=== PATIENT | male | born 1990 | race Caucasian/White ===

== ENCOUNTER → 2024-05-04 | Emergency (ER) | payer BC ==
[~2024-05-04] VITALS: Ht 188 cm; Wt 149.7 kg
[~2024-05-04] MED LIST: IBUP-1955 PO; KETOROLAC TROMETHAMINE 15 MG/ML VIAL ONE; METOCLOPRAMIDE HCL 10 MG/2 ML VIAL ONE; diphenhydrAMINE HCL 50 MG/ML VIAL ONE
[2024-05-04] MEDS: diphenhydrAMINE HCL 50 MG/ML VIAL IV ONE (15:31)
[2024-05-04] MEDS: METOCLOPRAMIDE HCL 10 MG/2 ML VIAL IV ONE (15:31)
[2024-05-04] MEDS: KETOROLAC TROMETHAMINE 15 MG/ML VIAL IV ONE (15:32)
[2024-05-04] MEDS: IV NS 0.9% 1,000 ML BAG IV ONE (15:32)
[2024-05-04 17:20] VITALS: BP 130/80; TEMP 98.4; O2SAT 96
== END | disposition home or self-care (01) ==
LOC: ER 14:47
DX: R51.9 Headache, unspecified (principal); H53.149 Visual discomfort, unspecified; R11.0 Nausea; I10 Essential (primary) hypertension
CPT/HCPCS: 99284; 96374; 96375; 96361; J1200; J2765; J7030; J1885

== ENCOUNTER 2024-05-06 19:41 | Inpatient (IN) | payer BC ==
[~2024-05-06] VITALS: Ht 188 cm; Wt 143.8 kg
[~2024-05-06 19:41] MED LIST changes: -KETOROLAC TROMETHAMINE 15 MG/ML VIAL ONE; -METOCLOPRAMIDE HCL 10 MG/2 ML VIAL ONE; -diphenhydrAMINE HCL 50 MG/ML VIAL ONE
[2024-05-06] MEDS: PIPERACILLIN /TAZOBACTAM 3.375 G in IV D5W 50 ML IV ONE (21:00)
[2024-05-06] MEDS: IV NS 0.9% 1,000 ML BAG IV ONE (21:00)
[2024-05-06] MEDS: MORPHINE SULFATE INJ 2 MG/ML DISP.SYRIN IV ONE (21:00)
[2024-05-06] MEDS: ONDANSETRON HCL/PF 4 MG/2 ML VIAL IVP ONE (21:00)
[2024-05-06] MEDS ORDERED: ONDANSETRON HCL/PF 4 MG/2 ML VIAL ONE (21:10)
[2024-05-06] MEDS ORDERED: MORPHINE SULFATE INJ 4 MG/ML DISP.SYRIN ONE (21:11)
[2024-05-06] MEDS ORDERED: PIPERACI/TAZO 3.375GM/D5W 50ML PB IV ONE (21:11)
[2024-05-06] MEDS ORDERED: VANCOMYCIN 1 GM /D5W 250 ML PB IV ONE (21:11)
[2024-05-06 21:26] LABS: BASOPHILS # (AUTO) 0.2 K/uL (0.0-0.2); BASOPHILS % (AUTO) 1.2 % (0.0-2.0); EOSINOPHILS % (AUTO) 0.1 % (0.0-6.0); HEMATOCRIT 46 % (39-51); HEMOGLOBIN 15.3 g/dL (13.5-17.5); LYMPHOCYTES # (AUTO) 1.6 K/uL (0.8-4.8); LYMPHOCYTES % (AUTO) 8.3 % (20.0-44.0); MEAN CORPUSCULAR HEMOGLOBIN 29 PG (26.0-33.0); MEAN CORPUSCULAR HGB CONC 34 g/dl (31.0-36.0); MEAN CORPUSCULAR VOLUME 87 fL (80-96); MONOCYTES # (AUTO) 1.5 K/uL (0.1-1.30); MONOCYTES % (AUTO) 7.9 % (2.0-12.0); NEUTROPHILS # (AUTO) 15.8 K/uL (1.8-8.9); NEUTROPHILS % (AUTO) 82.5 % (43.0-81.0); PLATELET COUNT (AUTO) 191 K/uL (150-450); RED BLOOD CELL COUNT(AUTO) 5.25 MIL/uL (4.5-6.0); RED CELL DISTRIBUTION WIDTH 13.2 % (11.5-15.0); WHITE BLOOD COUNT (AUTO) 19.2 K/uL (4.3-11.0)
[2024-05-06] MEDS: KETOROLAC TROMETHAMINE INJ 30 MG/ML VIAL IV ONE (21:30)
[2024-05-06] MEDS: ACETAMINOPHEN ES 500 MG TABLET PO ONE (21:30)
[2024-05-06 21:34] LABS: CALCIUM, SERUM 8.8 mg/dL (8.5-10.1); CARBON DIOXIDE 26 mmol/L (21-32); CHLORIDE 94 mmol/L (98-107); CREATININE 1.2 mg/dL (0.6-1.3); GLUCOSE 369 mg/dL (74-106); POTASSIUM 4.4 mmol/L (3.5-5.1); SODIUM SERUM 127 mmol/L (136-145); UREA NITROGEN, BLOOD 14 mg/dL (7-18)
[2024-05-06 21:39] LABS: ALANINE AMINOTRANSFERASE 49 U/L (12-78); ALBUMIN 2.6 g/dL (3.4-5.0); ALKALINE PHOSPHATASE 96 U/L (46-116); ASPARTATE AMINOTRANSFERASE 48 U/L (15-37); BILIRUBIN,DIRECT 0.5 mg/dL (0.0-0.2); BILIRUBIN,TOTAL 1.7 mg/dL (0.2-1.0); TOTAL PROTEIN, SERUM 7.2 g/dL (6.4-8.2)
[2024-05-06] MEDS: VANCOMYCIN 1 GM in IV D5W 250 ML IV ONE (21:44)
[2024-05-06 21:45] LABS: LACTIC ACID 2.8 mmol/L (0.4-2.0)
[2024-05-06] MEDS ORDERED: ACETAMINOPHEN ES 500 MG TABLET ONE (21:46)
[2024-05-06] MEDS ORDERED: KETOROLAC TROMETHAMINE INJ 30 MG/ML VIAL ONE (21:46)
[2024-05-06 22:10] LABS: INR 1.23 (0.91-1.10); PARTIAL THROMBOPLASTIN TIME 30.8 SEC (24.3-34.3); PROTHROMBIN TIME 12.9 SECS (9.2-11.1)
[2024-05-06] MEDS ORDERED: IOHEXOL-300 100 ML VIAL IV ONE (22:11)
[2024-05-06] MEDS ORDERED: IV NS 0.9% 250 ML IV ONE (22:11)
[2024-05-06] MEDS ORDERED: CT SWABBABLE VALVE TRANS SET 1 EA INFUS.SET MC ONE (22:11)
[2024-05-06 23:07] LABS: APPEARANCE,URINE CLEAR (CLEAR); BILIRUBIN,URINE 1+ (NEGATIVE); BLOOD, URINE 1+ Ery/uL (NEGATIVE); COLOR,URINE DARK YELLOW (YELLOW); KETONES,URINE TRACE mg/dL (NEGATIVE); LEUKOCYTE ESTERASE ,URINE NEGATIVE (NEGATIVE); NITRITE, URINE POSITIVE (NEGATIVE); PROTEIN,URINE 3+ mg/dl (NEGATIVE); UGLUCOSE 2+ mg/dL (NEGATIVE)
[2024-05-06 23:19] LABS: ADD URINE CULTURE YES; BACTERIA,URINE Few /HPF (None Seen); SQUAMOUS EPITHELIAL CELL,UR Few /HPF (None Seen)
[2024-05-06] MEDS ORDERED: PIPERACILLIN /TAZOBACTAM 3.375 G in IV NS 0.9% 50 ML IV ONE (23:30)
[2024-05-06] MEDS ORDERED: ZOLPIDEM TARTRATE 5 MG TABLET PO PRN (23:30)
[2024-05-06] MEDS ORDERED: Z GUARD REMEDY 4 OZ OINT TP PRN (23:30)
[2024-05-06] MEDS ORDERED: MAGNESIUM HYDROXIDE 30 ML UDC PO PRN (23:30)
[2024-05-06] MEDS ORDERED: MAG HYDROX/AL HYDROX/SIMETH 30 ML UDC PO PRN (23:30)
[2024-05-06 23:58] VITALS: BP 104/64; TEMP 98.8; O2SAT 96
[2024-05-07 00:06] LABS: BASOPHILS % (MANUAL) 0 % (0.0-2.0); EOSINOPHILS % (MANUAL) 0 % (0-4); LYMPHOCYTES % (MANUAL) 9 % (16-48); MONOCYTES % (MANUAL) 6 % (0-11.0); NEUTROPHILS % (MANUAL) 85 (42-76); PLATELET ESTIMATE ADEQUATE
[2024-05-07 00:10] VITALS: BP 104/64; TEMP 98.8; O2SAT 96
[2024-05-07] MEDS: IV NS 0.9% 1,000 ML IV PRN (00:35)
[2024-05-07] MEDS: PIPERACI/TAZO 3.375GM/D5W 50ML PB IV ONE (00:43)
[2024-05-07] MEDS ORDERED: PIPERACI/TAZO 3.375GM/D5W 50ML PB IV ONE (03:12)
[2024-05-07] MEDS: PIPERACILLIN /TAZOBACTAM 3.375 G in IV NS 0.9% 50 ML IV ONE (03:14)
[2024-05-07] MEDS: ACETAMINOPHEN 325 MG TABLET PO PRN (04:50)
[2024-05-07 06:48] LABS: BASOPHILS # (AUTO) 0.1 K/uL (0.0-0.2); BASOPHILS % (AUTO) 0.6 % (0.0-2.0); EOSINOPHILS % (AUTO) 0.2 % (0.0-6.0); HEMATOCRIT 42 % (39-51); HEMOGLOBIN 14.2 g/dL (13.5-17.5); LYMPHOCYTES # (AUTO) 1.5 K/uL (0.8-4.8); LYMPHOCYTES % (AUTO) 7.3 % (20.0-44.0); MEAN CORPUSCULAR HEMOGLOBIN 30 PG (26.0-33.0); MEAN CORPUSCULAR HGB CONC 34 g/dl (31.0-36.0); MEAN CORPUSCULAR VOLUME 87 fL (80-96); NEUTROPHILS # (AUTO) 16.4 K/uL (1.8-8.9); NEUTROPHILS % (AUTO) 81.9 % (43.0-81.0); PLATELET COUNT (AUTO) 172 K/uL (150-450); RED BLOOD CELL COUNT(AUTO) 4.79 MIL/uL (4.5-6.0); RED CELL DISTRIBUTION WIDTH 13.3 % (11.5-15.0)
[2024-05-07] MEDS ORDERED: DEXTROSE 50%-WATER 50 ML DISP.SYRIN IV PRN (07:00)
[2024-05-07 07:06] LABS: LACTIC ACID 1.1 mmol/L (0.4-2.0)
[2024-05-07] MEDS: INSULIN REGULAR, HUMAN 100 UNIT/ML 3 ML VIAL SQ PRN (07:06)
[2024-05-07] MEDS: BLOOD SUGAR DIAGNOSTIC 1 EACH STRIP IN SCH (07:10)
[2024-05-07 07:19] LABS: ALBUMIN 2.2 g/dL (3.4-5.0); BILIRUBIN,DIRECT 0.6 mg/dL (0.0-0.2); BILIRUBIN,TOTAL 1.7 mg/dL (0.2-1.0); CALCIUM, SERUM 8.2 mg/dL (8.5-10.1); MAGNESIUM 1.8 mg/dL (1.8-2.4); PHOSPHORUS 3.6 mg/dL (2.5-4.9); POTASSIUM 4.2 mmol/L (3.5-5.1); TOTAL PROTEIN, SERUM 6.4 g/dL (6.4-8.2)
[2024-05-07 07:30] VITALS: BP 130/111; TEMP 99.1; O2SAT 95
[2024-05-07] MEDS ORDERED: BLOOD SUGAR DIAGNOSTIC 1 EACH STRIP IN SCH (07:30)
[2024-05-07] MEDS ORDERED: INSULIN REGULAR, HUMAN 100 UNIT/ML 10 ML VIAL SQ SCH (07:30)
[2024-05-07 07:34] LABS: THYROID STIMULATING HORMONE 2.25 uIU/mL (0.358-3.74)
[2024-05-07] MEDS ORDERED: OMEP40CA21 PO (07:36)
[2024-05-07] MEDS ORDERED: LISI40TA13 PO (07:36)
[2024-05-07] MEDS: PANTOPRAZOLE 40 MG TABLET.DR PO SCH (07:54)
[2024-05-07] MEDS: KETOROLAC TROMETHAMINE INJ 30 MG/ML VIAL IV PRN (09:30)
[2024-05-07] MEDS: VANCOMYCIN HCL 1.25 GM in IV D5W 250 ML IV SCH (09:31)
[2024-05-07] MEDS: ZOSYN IVPB 3.375 G in IV D5W 50ml IV SCH (12:28)
[2024-05-07] MEDS ORDERED: MORPHINE SULFATE INJ 4 MG/ML DISP.SYRIN IV PRN (13:00)
[2024-05-07 16:00] VITALS: BP 117/78; TEMP 98.2; O2SAT 100
[2024-05-07] MEDS ORDERED: CLINDAMYCIN PHOSPHATE IV 600 MG/4 ML VIAL IV SCH (17:30)
[2024-05-07] MEDS ORDERED: ANESTHESIA TRAY IN PYXIS 1 EA TRAY MC ONE (17:57)
[2024-05-07] MEDS ORDERED: CLINDAMYCIN IV RTU IN D5W 600 MG/50 ML PIGGYBACK IV SCH (18:00)
[2024-05-07] MEDS ORDERED: CLINDAMYCIN 600 MG in IV NS 0.9% 46 ML IV SCH (18:00)
[2024-05-07] MEDS ORDERED: MIDAZOLAM HCL 2 MG/2ML VIAL ONE (18:44)
[2024-05-07] MEDS ORDERED: FENTANYL PF 250MCG/5ML AMPUL ONE (18:44)
[2024-05-07] MEDS ORDERED: SEVOFLURANE 250 ML BOTTLE IH ONE (19:15)
[2024-05-07 20:07] VITALS: BP 126/79; TEMP 97.7; O2SAT 96
[2024-05-07] MEDS: CLINDAMYCIN 600 MG in IV NS 0.9% 46 ML IV SCH (21:43)
[2024-05-07] MEDS: IV LR 1000 ML 1,000 ML IV PRN (22:28)
[2024-05-08] MEDS: HYDROMORPHONE INJ 2 MG/ML DISP.SYRIN IV PRN (06:32)
[2024-05-08 07:38] LABS: BASOPHILS # (AUTO) 0.1 K/uL (0.0-0.2); BASOPHILS % (AUTO) 0.5 % (0.0-2.0); EOSINOPHILS # (AUTO) 0.1 K/uL (0.0-0.7); EOSINOPHILS % (AUTO) 0.5 % (0.0-6.0); HEMATOCRIT 38 % (39-51); HEMOGLOBIN 12.7 g/dL (13.5-17.5); LYMPHOCYTES # (AUTO) 2.1 K/uL (0.8-4.8); LYMPHOCYTES % (AUTO) 13.5 % (20.0-44.0); MEAN CORPUSCULAR HEMOGLOBIN 29 PG (26.0-33.0); MEAN CORPUSCULAR HGB CONC 33 g/dl (31.0-36.0); MEAN CORPUSCULAR VOLUME 87 fL (80-96); MONOCYTES # (AUTO) 1.8 K/uL (0.1-1.30); MONOCYTES % (AUTO) 11.5 % (2.0-12.0); NEUTROPHILS # (AUTO) 11.4 K/uL (1.8-8.9); PLATELET COUNT (AUTO) 181 K/uL (150-450); RED CELL DISTRIBUTION WIDTH 13.4 % (11.5-15.0); WHITE BLOOD COUNT (AUTO) 15.4 K/uL (4.3-11.0)
[2024-05-08 07:55] LABS: CALCIUM, SERUM 7.6 mg/dL (8.5-10.1); MAGNESIUM 2.1 mg/dL (1.8-2.4); PHOSPHORUS 3.4 mg/dL (2.5-4.9); POTASSIUM 3.8 mmol/L (3.5-5.1)
[2024-05-08 08:00] VITALS: BP 101/57; TEMP 98.6; O2SAT 94
[2024-05-08 08:06] LABS: RAPID PLASMA REAGIN QUAL. Non Reactive (Non Reactive)
[2024-05-08 08:13] LABS: THYROID STIMULATING HORMONE 3.8 uIU/mL (0.358-3.74)
[2024-05-08 08:39] LABS: PHOSPHORUS 3.5 mg/dL (2.5-4.9)
[2024-05-08 14:27] LABS: HIV-1 p24 ANTIGEN NON REACTIVE (NONREACTIVE); HIV-1/2 ANTIBODY NON REACTIVE (NONREACTIVE)
[2024-05-08] MEDS ORDERED: VANCOMYCIN 1 GM in IV D5W 250ml IV SCH (15:00)
[2024-05-08] MEDS: VANCOMYCIN 500 MG in IV D5W 100ml IV SCH (15:54)
[2024-05-08 16:00] VITALS: BP 101/66; TEMP 98.2; O2SAT 96
[2024-05-08] MEDS: VANCOMYCIN 1 GM in IV D5W 250ml IV SCH (17:32)
[2024-05-08 20:00] VITALS: BP 115/81; TEMP 98.1; O2SAT 98
[2024-05-09 07:00] VITALS: BP 104/65; TEMP 99; O2SAT 95
[2024-05-09 07:24] LABS: CALCIUM, SERUM 8.1 mg/dL (8.5-10.1); CREATININE 0.9 mg/dL (0.6-1.3); MAGNESIUM 1.9 mg/dL (1.8-2.4); PHOSPHORUS 4.5 mg/dL (2.5-4.9)
[2024-05-09 09:52] LABS: BASOPHILS # (AUTO) 0.1 K/uL (0.0-0.2); BASOPHILS % (AUTO) 0.8 % (0.0-2.0); EOSINOPHILS # (AUTO) 0.2 K/uL (0.0-0.7); EOSINOPHILS % (AUTO) 1.6 % (0.0-6.0); HEMATOCRIT 36 % (39-51); HEMOGLOBIN 12.1 g/dL (13.5-17.5); LYMPHOCYTES % (AUTO) 17.1 % (20.0-44.0); MEAN CORPUSCULAR HEMOGLOBIN 29 PG (26.0-33.0); MEAN CORPUSCULAR HGB CONC 34 g/dl (31.0-36.0); MEAN CORPUSCULAR VOLUME 87 fL (80-96); MONOCYTES # (AUTO) 1.1 K/uL (0.1-1.30); MONOCYTES % (AUTO) 9.1 % (2.0-12.0); NEUTROPHILS # (AUTO) 8.4 K/uL (1.8-8.9); NEUTROPHILS % (AUTO) 71.4 % (43.0-81.0); PLATELET COUNT (AUTO) 192 K/uL (150-450); RED BLOOD CELL COUNT(AUTO) 4.14 MIL/uL (4.5-6.0); RED CELL DISTRIBUTION WIDTH 13.4 % (11.5-15.0); WHITE BLOOD COUNT (AUTO) 11.8 K/uL (4.3-11.0)
[2024-05-09] MEDS: GLIMEPIRIDE 1 MG TABLET PO SCH (11:33)
[2024-05-09 16:00] VITALS: BP 101/53; TEMP 98.9; O2SAT 96
[2024-05-09] MEDS: METFORMIN 500 MG TABLET PO SCH (17:31)
[2024-05-09 19:18] VITALS: BP 118/66; TEMP 98.2; O2SAT 96
[2024-05-09 20:00] VITALS: BP 118/66; TEMP 98.2; O2SAT 95
[2024-05-09 21:21] VITALS: BP 118/66; TEMP 98.2; O2SAT 95
[2024-05-10 07:54] LABS: BASOPHILS # (AUTO) 0.1 K/uL (0.0-0.2); BASOPHILS % (AUTO) 0.6 % (0.0-2.0); EOSINOPHILS # (AUTO) 0.2 K/uL (0.0-0.7); EOSINOPHILS % (AUTO) 1.7 % (0.0-6.0); HEMATOCRIT 38 % (39-51); HEMOGLOBIN 12.8 g/dL (13.5-17.5); LYMPHOCYTES # (AUTO) 1.7 K/uL (0.8-4.8); LYMPHOCYTES % (AUTO) 18.7 % (20.0-44.0); MEAN CORPUSCULAR HEMOGLOBIN 29 PG (26.0-33.0); MEAN CORPUSCULAR HGB CONC 34 g/dl (31.0-36.0); MEAN CORPUSCULAR VOLUME 87 fL (80-96); MONOCYTES % (AUTO) 11.5 % (2.0-12.0); NEUTROPHILS # (AUTO) 6.1 K/uL (1.8-8.9); NEUTROPHILS % (AUTO) 67.5 % (43.0-81.0); PLATELET COUNT (AUTO) 249 K/uL (150-450); RED BLOOD CELL COUNT(AUTO) 4.39 MIL/uL (4.5-6.0); RED CELL DISTRIBUTION WIDTH 13.2 % (11.5-15.0)
[2024-05-10 08:00] VITALS: BP 117/75; TEMP 98.1; O2SAT 98
[2024-05-10 08:49] LABS: CALCIUM, SERUM 8.6 mg/dL (8.5-10.1); CREATININE 0.9 mg/dL (0.6-1.3); MAGNESIUM 1.9 mg/dL (1.8-2.4); PHOSPHORUS 4.9 mg/dL (2.5-4.9); POTASSIUM 4.3 mmol/L (3.5-5.1)
[2024-05-10] MEDS: HYDROMORPHONE INJ 2 MG/ML DISP.SYRIN IV PRN (13:36)
[2024-05-10 16:00] VITALS: BP 121/77; TEMP 97.4; O2SAT 98
[2024-05-10 20:00] VITALS: BP 118/88; TEMP 97.8; O2SAT 97
[2024-05-11 02:07] LABS: HEPATITIS B CORE AB, TOTAL Negative (Negative); HEPATITIS B SURFACE AB Non Reactive (.)
[2024-05-11 07:27] LABS: BASOPHILS % (AUTO) 0.6 % (0.0-2.0); EOSINOPHILS # (AUTO) 0.2 K/uL (0.0-0.7); HEMATOCRIT 39 % (39-51); HEMOGLOBIN 13.2 g/dL (13.5-17.5); LYMPHOCYTES # (AUTO) 2.2 K/uL (0.8-4.8); LYMPHOCYTES % (AUTO) 26.4 % (20.0-44.0); MEAN CORPUSCULAR HEMOGLOBIN 29 PG (26.0-33.0); MEAN CORPUSCULAR HGB CONC 34 g/dl (31.0-36.0); MEAN CORPUSCULAR VOLUME 86 fL (80-96); MONOCYTES # (AUTO) 1.1 K/uL (0.1-1.30); MONOCYTES % (AUTO) 13.5 % (2.0-12.0); NEUTROPHILS # (AUTO) 4.7 K/uL (1.8-8.9); NEUTROPHILS % (AUTO) 56.5 % (43.0-81.0); PLATELET COUNT (AUTO) 282 K/uL (150-450); RED BLOOD CELL COUNT(AUTO) 4.53 MIL/uL (4.5-6.0); RED CELL DISTRIBUTION WIDTH 13.1 % (11.5-15.0); WHITE BLOOD COUNT (AUTO) 8.2 K/uL (4.3-11.0)
[2024-05-11 07:49] LABS: CALCIUM, SERUM 9.4 mg/dL (8.5-10.1); CREATININE 0.9 mg/dL (0.6-1.3); PHOSPHORUS 4.7 mg/dL (2.5-4.9); POTASSIUM 4.1 mmol/L (3.5-5.1)
[2024-05-11 08:00] VITALS: BP 120/78; TEMP 98.2; O2SAT 94
[2024-05-11 16:00] VITALS: BP 109/94; TEMP 97.9; O2SAT 98
[2024-05-11 20:00] VITALS: BP 141/92; TEMP 97.7; O2SAT 96
[2024-05-11 22:21] VITALS: BP 141/92; TEMP 97.7; O2SAT 96
[2024-05-12 07:00] VITALS: BP 135/91; TEMP 97.7; O2SAT 95
[2024-05-12 07:16] LABS: BASOPHILS # (AUTO) 0.1 K/uL (0.0-0.2); BASOPHILS % (AUTO) 0.8 % (0.0-2.0); EOSINOPHILS # (AUTO) 0.3 K/uL (0.0-0.7); EOSINOPHILS % (AUTO) 2.4 % (0.0-6.0); HEMATOCRIT 42 % (39-51); HEMOGLOBIN 14.3 g/dL (13.5-17.5); LYMPHOCYTES # (AUTO) 2.5 K/uL (0.8-4.8); MEAN CORPUSCULAR HEMOGLOBIN 29 PG (26.0-33.0); MEAN CORPUSCULAR HGB CONC 34 g/dl (31.0-36.0); MEAN CORPUSCULAR VOLUME 87 fL (80-96); MONOCYTES # (AUTO) 1.3 K/uL (0.1-1.30); NEUTROPHILS # (AUTO) 6.6 K/uL (1.8-8.9); NEUTROPHILS % (AUTO) 61.8 % (43.0-81.0); PLATELET COUNT (AUTO) 344 K/uL (150-450); RED BLOOD CELL COUNT(AUTO) 4.89 MIL/uL (4.5-6.0); RED CELL DISTRIBUTION WIDTH 13.3 % (11.5-15.0); WHITE BLOOD COUNT (AUTO) 10.7 K/uL (4.3-11.0)
[2024-05-12 08:12] LABS: CALCIUM, SERUM 9.9 mg/dL (8.5-10.1); CREATININE 0.8 mg/dL (0.6-1.3); PHOSPHORUS 4.3 mg/dL (2.5-4.9); POTASSIUM 4.3 mmol/L (3.5-5.1)
[2024-05-12] MEDS ORDERED: AMOX-430 PO (12:04)
[2024-05-12] MEDS ORDERED: GLIM1TAB PO (12:04)
[2024-05-12] MEDS ORDERED: METF-440 PO (12:04)
[2024-05-12] MEDS: MAGNESIUM CITRATE 296 ML BOTTLE PO ONE (13:14)
[2024-05-12 16:00] VITALS: BP 135/77; TEMP 97.7; O2SAT 95
== END 2024-05-12 23:54 | disposition home health service (06) | DRG 854 ==
LOC: ER 19:47 → MED 22:48
PROVIDERS: ADMIT Nurse Practitioner Family; ATTEND Student in an Organized Health Care Education/Training Program
PROC: 0D9P0ZZ Drainage of Rectum, Open Approach (ICD-10-PCS; principal; 2024-05-06)
PROC: 0D9Q0ZZ Drainage of Anus, Open Approach (ICD-10-PCS; 2024-05-07)
DX: A41.9 Sepsis, unspecified organism (principal); E44.0 Moderate protein-calorie malnutrition; L03.317 Cellulitis of buttock; E87.1 Hypo-osmolality and hyponatremia; E87.20 Acidosis, unspecified; K61.1 Rectal abscess; L02.31 Cutaneous abscess of buttock; Z68.41 Body mass index [BMI] 40.0-44.9, adult; K61.0 Anal abscess; R17 Unspecified jaundice; L02.215 Cutaneous abscess of perineum; R65.20 Severe sepsis without septic shock; E66.9 Obesity, unspecified; N49.3 Fournier gangrene; E11.65 Type 2 diabetes mellitus with hyperglycemia; E86.9 Volume depletion, unspecified; I10 Essential (primary) hypertension; E88.09 Other disorders of plasma-protein metabolism, not elsewhere classified; Z79.84 Long term (current) use of oral hypoglycemic drugs; F17.210 Nicotine dependence, cigarettes, uncomplicated; R74.01 Elevation of levels of liver transaminase levels
CPT/HCPCS: 36415; 71045-TC; 72193-TC; 80048-TC; 80061-TC; 80076-TC; 80202-TC; 81001; 82962-TC; 83605-TC; 83735-TC; 84100-TC; 84443-TC; 84484-TC; 84550-TC; 85025-TC; 85730-TC; 86140-TC; 86592; 86593; 86704; 86706; 86803; 87040-TC; 87086-TC; 87340; 87806; A4223; A6253; A6403; A6407; G0378; J1170; J1815; J1885; J2250; J2270; J2405; J2543; J2704; J2765; J3010; J3370; J3490; J7030; J7040; J7050; J7060; J7120; Q9967

== ENCOUNTER 2024-05-12 21:25 | Emergency (ER) | payer BC ==
[~2024-05-12 21:25] MED LIST changes: +AMOX-430 PO; +GLIM1TAB PO; +LISI40TA13 PO; +METF-440 PO; +OMEP40CA21 PO
== END 2024-05-12 22:51 | disposition left against medical advice (07) ==
LOC: ER 21:28
DX: Z53.21 Procedure and treatment not carried out due to patient leaving prior to being seen by health care provider (principal)